=== PATIENT | female | born 1995 | race Caucasian/White ===

== ENCOUNTER 2021-02-11 18:25 | Inpatient (IN) | payer OTHER ==
[~2021-02-11] VITALS: Ht 165.1 cm; Wt 111.6 kg
[2021-02-11 19:51] LABS: HEMOGLOBIN 13.3 gm/dl (12.3-15.3); RED BLOOD COUNT 4.7 M/UL (4.00-5.10); WHITE BLOOD COUNT 15.3 K/UL (4.5-11.0)
[2021-02-11 20:11] LABS: BUN/CREATININE RATIO 14 (0-10)
[2021-02-12] MEDS ORDERED: BUSPIRONE HCL10 MG PO (00:40)
[2021-02-12] MEDS ORDERED: ACYCLOVIR400 MG PO (00:40)
[2021-02-12 06:17] LABS: HEMOGLOBIN 12.4 gm/dl (12.3-15.3); RED BLOOD COUNT 4.41 M/UL (4.00-5.10); WHITE BLOOD COUNT 16.2 K/UL (4.5-11.0)
[2021-02-12 06:35] LABS: BUN/CREATININE RATIO 11 (0-10)
--- NOTE | 2021-02-13 01:35 | NUR ---
while doing hourly rounding I have found the patient several times crying in pain. I have offered to bring her hydrocodone 5mg that she has ordered PRN for pain. She states that it doesn't help her and refuses to take them, she only wants morphine. I tried to educate the patient on her pain medication, and explain that we could give her morphine one time and rotate it with the hydrocodone next time. This would give her a better coverage than only taking the morphine. But each time she refuses.
--- NOTE | 2021-02-13 02:35 | NUR ---
PATIENT HAS REPORTED PAIN MULTIPLE TIMES AND COULD HAVE RECIEVED HYDROCODONE, HOWEVER SHE REFUSED IT. I EXPLAINED TO THE PATIENT THAT THE MORPHINE WOULD WORK NOW, AND BY THE TIME THAT IT WEARS OFF, THE HYDROCODONE SHOULD START TO WORK. HER MOTHER WAS ON THE PHONE AND ASKED IF THERE WAS NOT ANYTHING ELSE I COULD GIVE HER FOR PAIN, AND I EXPLAINED THAT SHE HAD HYDROCODONE SHE COULD HAVE. SHE TOOK THE HYDROCODONE AND THE MORPHINE. I CHECKED BACK IN ONE HOUR AND THE PATIENT STARTED CRYING AND SAID THAT SHE WANTS TO BE "KNOCKED OUT" BECAUSE THE MEDICATION IS NOT HELPING AT ALL. I CALLED DR. JACOBSON TO EXPLAIN THE SITUATION AND HE ORDERED 0.5 MG DILAUDID ONE TIME. I CONFIRMED THE ORDER VIA TELEPHONE WITH READBACK.
--- NOTE | 2021-02-13 02:59 | NUR ---
after reassessment the patient states she is still hurting and neither the morphine nor the hydrocodone has touched her pain. Damian called Dr. Bowles and he gave a one time order for dilaudid 0.5mg IVP one time. We will reassess her after the medication is given.
[2021-02-13 05:44] LABS: HEMOGLOBIN 12.7 gm/dl (12.3-15.3); RED BLOOD COUNT 4.48 M/UL (4.00-5.10); WHITE BLOOD COUNT 14.5 K/UL (4.5-11.0)
--- NOTE | 2021-02-13 06:23 | NUR ---
VANCOMYCIN TROUGH CAME BACK 2.7, PHARMACY WAS NOTIFIED. I WAS TOLD TO HOLD THE 0600 DOSE, AND THEY ORDERED A STAT REDRAW OF THE TROUGH.
[2021-02-13 06:27] LABS: BUN/CREATININE RATIO 17 (0-10)
[2021-02-14 06:05] LABS: HEMOGLOBIN 12.6 gm/dl (12.3-15.3); RED BLOOD COUNT 4.45 M/UL (4.00-5.10); WHITE BLOOD COUNT 12.3 K/UL (4.5-11.0)
[2021-02-14 07:02] LABS: BUN/CREATININE RATIO 24 (0-10)
[2021-02-15 07:12] LABS: HEMOGLOBIN 10.9 gm/dl (12.3-15.3); WHITE BLOOD COUNT 9.9 K/UL (4.5-11.0)
[2021-02-15 07:22] LABS: RED BLOOD COUNT 3.94 M/UL (4.00-5.10)
[2021-02-15 07:34] LABS: BUN/CREATININE RATIO 24 (0-10)
--- NOTE | 2021-02-15 15:51 | NUR ---
PT SURGICAL SITE COVERED IN BULKY POST OP DRESSING AND WRAPPED IN MATT. DRSG IS CDI. PT HAS NO COMPLAINTS. DR SAUCEDO STATED THAT PT COULD D/C HOME TODAY BUT PATIENT WANTS TO STAY FOR ONE MORE NIGHT BECAUSE SHE DOESNT FEEL CONFORTABLE ENOUGH TO GO HOME YET AT THIS TIME. WCTM. ALL VITALS AND ASSESSMENT WNL.
[2021-02-16 05:22] LABS: HEMOGLOBIN 11.2 gm/dl (12.3-15.3); RED BLOOD COUNT 4.01 M/UL (4.00-5.10); WHITE BLOOD COUNT 9.9 K/UL (4.5-11.0)
[2021-02-16 06:24] LABS: BUN/CREATININE RATIO 29 (0-10)
[2021-02-16] MEDS ORDERED: HYDROCODON-ACE1 EAC4 PO ×2 (10:00→10:30)
[2021-02-16] MEDS ORDERED: INSULIN AS100 UNIT/3 SQ ×2 (10:29→14:42)
[2021-02-16] MEDS ORDERED: LANTUS SOL100 UNIT/1 SQ ×2 (10:29→14:42)
[2021-02-16] MEDS ORDERED: BACTRIM DS TAB1 EACH PO ×2 (10:41→14:41)
[2021-02-16] MEDS ORDERED: FERROUS SULFAT325 M2 PO (10:41)
[2021-02-16] MEDS ORDERED: GLUCOPHAGE 850850 MG PO ×2 (14:19→14:42)
--- NOTE | 2021-02-16 14:31 | NUR ---
PT PROVIDED WITH VERBAL WRITTEN AND DEMONSTRATION EDUCATION FOR INSULIN, ACCUCHECKS, AND ADMINISTRATION SQ. PT ALSO INSTRUCTED ON HOW TO CHANGE DRESSING AND PROVIDED WITH SUPPLIES TO DO SO. ALSO EDUCATED ON IMPORTANCE OF GLUCOSE CONTROL IN ORDER FOR WOUNDS TO HEAL. PT AND PT FAMILY AT BEDSIDE BOTH VERBALIZED UNDERSTANDING OF EDUCATION PROVIDED.
== END 2021-02-16 15:16 | disposition home or self-care (01) | DRG 872 ==
LOC: ER1 18:25 → CDU 23:03 → M/S 23:03
PROVIDERS: Internal Medicine; Physician Assistant; Physician Assistant Medical; Surgery; ADMIT Emergency Medicine
PROC: 0H9LXZZ Drainage of Left Lower Leg Skin, External Approach (ICD-10-PCS; principal; 2021-02-15 13:15)
DX: A41.89 Other specified sepsis (principal); L03.116 Cellulitis of left lower limb; E87.1 Hypo-osmolality and hyponatremia; L02.416 Cutaneous abscess of left lower limb; Z68.41 Body mass index [BMI] 40.0-44.9, adult; Z20.822 Contact with and (suspected) exposure to COVID-19; F32.A Depression, unspecified; E66.9 Obesity, unspecified; E78.5 Hyperlipidemia, unspecified; E11.65 Type 2 diabetes mellitus with hyperglycemia; F17.210 Nicotine dependence, cigarettes, uncomplicated; Z91.14 Patient's other noncompliance with medication regimen; Z79.84 Long term (current) use of oral hypoglycemic drugs; Z83.3 Family history of diabetes mellitus
CPT/HCPCS: 36415; 73701; 80048; 80053; 80202; 82962; 83036; 83605; 84439; 84443; 84703; 85025; 85027; 85379; 85610; 85730; 86140; 87040; 87070; 87205; 93971; 96374; 96375; 99284; G0378; J1100; J1170; J1650; J1885; J2001; J2250; J2270; J2405; J2543; J2704; J3370; J7030; J7070; J7120; Q9967; U0002

== ENCOUNTER 2021-07-07 17:58 | Emergency (ER) | payer SELFPAY ==
[~2021-07-07 17:58] MED LIST: ACYCLOVIR400 MG PO; BACTRIM DS TAB1 EACH PO; BUSPIRONE HCL10 MG PO; FERROUS SULFAT325 M2 PO; GLUCOPHAGE 850850 MG PO; HYDROCODON-ACE1 EAC4 PO; INSULIN AS100 UNIT/3 SQ; LANTUS SOL100 UNIT/1 SQ
[2021-07-07 19:58] LABS: HEMOGLOBIN 15.2 gm/dl (12.3-15.3); RED BLOOD COUNT 5.51 M/UL (4.00-5.10); WHITE BLOOD COUNT 9.4 K/UL (4.5-11.0)
[2021-07-07 20:18] LABS: BUN/CREATININE RATIO 20 (0-10)
[2021-07-07] MEDS ORDERED: METFORMIN HCL1000 MG PO (22:39)
== END 2021-07-07 23:13 | disposition home or self-care (01) ==
LOC: ER1 17:58
PROVIDERS: Physician Assistant Medical
DX: M79.662 Pain in left lower leg (principal); E11.65 Type 2 diabetes mellitus with hyperglycemia
CPT/HCPCS: 80053; 81001; 82962; 85025; 99283